=== PATIENT | male | born 2000 | race Caucasian/White ===

== ENCOUNTER 2022-05-12 06:44 | Emergency (ER) | payer SELFPAY ==
[~2022-05-12] VITALS: Ht 167.6 cm; Wt 94.5 kg
[2022-05-12 07:33] VITALS: BP 105/54
[2022-05-12] MEDS ORDERED: ACETAMINOPHEN 500MG TABLET PO ONE (07:45)
== END 2022-05-12 14:27 | disposition left against medical advice (07) ==
LOC: ER 12:20
DX: Z53.21 Procedure and treatment not carried out due to patient leaving prior to being seen by health care provider (principal)